=== PATIENT | female | born 1970 | race Caucasian/White ===

== ENCOUNTER → 2018-01-03 | Outpatient (REF) | payer OTHER ==
[2018-01-03 22:38] LABS: CHLAMYDIA DNA AMPLIFICATION NEGATIVE (NEGATIVE); GC DNA AMPLIFICATION NEGATIVE (NEGATIVE)
== END ==
LOC: M SFHCLERA 12:33
DX: R30.0 Dysuria (principal)
CPT/HCPCS: 87086

== ENCOUNTER → 2018-08-22 | Outpatient (CLI) | payer OTHER ==
[~2018-08-22] MED LIST: /ACETCOD2T PO; ABIL2TAB PO; CELE10TA PO; CLON0.5T PO; FLEX10TA2 PO; LORA10TA2 PO; NAPR500T2 PO; [UNRECOGNIZED DRUG - OTHER] PO
--- NOTE | 2018-08-22 10:52 | REP ---
MAXILLOFACIAL CT WITHOUT CONTRAST: HISTORY: Acute sinusitis. Minimal mucosal thickening is present in the maxillary, left ethmoid and right frontal sinuses. 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 The remaining sinuses are clear. The osteomeatal units are patent. The middle and inferior nasal turbinates are partially paradoxical. There is mild deviation of the nasal septum to the left. The cribriform plate, medial simms of the orbits, and optic canals are intact. The carotid canals form a segment of the posterolateral simms of the sphenoid sinus. IMPRESSION: 1. Sinus mucosal thickening as described above. 2. 9 mm left ethmoid sinus osteoma. Electronically Signed by Scooter Guadalupe MD 08/22/2018 10:56 A
== END ==
LOC: M RAD 10:00
PROVIDERS: ATTEND Family Medicine
DX: D16.4 Benign neoplasm of bones of skull and face (principal); J01.00 Acute maxillary sinusitis, unspecified; Z87.81 Personal history of (healed) traumatic fracture

== ENCOUNTER 2018-10-11 13:22 | Outpatient (RCR) | payer OTHER ==
[~2018-10-11 13:22] MED LIST changes: -/ACETCOD2T PO; +ACET1TAB15 PO; +TOLT4LA PO; -[UNRECOGNIZED DRUG - OTHER] PO
== END 2018-11-10 ==
LOC: M PT 13:22
PROVIDERS: ATTEND Family Medicine
DX: N39.46 Mixed incontinence (principal)

== ENCOUNTER → 2019-01-10 | Outpatient (REF) | payer OTHER | LOC: M SFHCCLAY 12:47 | PROVIDERS: ATTEND Family Medicine | DX: R23.9 Unspecified skin changes (principal) ==

== ENCOUNTER → 2019-02-05 | Outpatient (REF) | payer OTHER ==
[~2019-02-05] MED LIST changes: +AZEL1SPR3 NARES; +BENA25CA4 PO; +CITA20TA6 PO; +ECHI500C PO; +FLUT15.820; +IBUPOTC PO; +MYRB50TA PO; +TRAZ-252 PO; +VARE05TA PO
[2019-02-05 17:16] LABS: APPEARANCE, URINE TURBID (CLEAR); BACTERIA, URINE AUTO NEGATIVE (NEGATIVE); BILIRUBIN, URINE AUTO NEGATIVE (NEGATIVE); BLOOD, URINE BLOOD 1+ (NEGATIVE); COLOR, URINE AMBER (YELLOW); GLUCOSE, URINE (UA) AUTO NEGATIVE (NEGATIVE); KETONE, URINE AUTO TRACE mg/dL (NEGATIVE); LEUKOCYTE ESTERASE, URINE AUTO NEGATIVE (NEGATIVE); NITRITE, URINE AUTO NEGATIVE (NEGATIVE); PROTEIN, URINE AUTO NEGATIVE (NEGATIVE); RBC, URINE AUTO 2 /HPF (0-3); SQUAMOUS EPITHELIAL CELL UR AU 3 /HPF (0-6); UROBILINOGEN, URINE AUTO 0.2 mg/dL (0.0-2.0); WBC, URINE AUTO 0 /HPF (0-3)
== END ==
LOC: M LAB REF 16:44
PROVIDERS: ATTEND Obstetrics & Gynecology
DX: R82.90 Unspecified abnormal findings in urine (principal)

== ENCOUNTER 2019-05-24 13:10 | Day surgery (SDC) | payer OTHER ==
[~2019-05-24] VITALS: Ht 154.9 cm; Wt 85.2 kg
[~2019-05-24 13:10] MED LIST changes: +LR 1,000 ML IV ONE; +ceFAZolin SOD 2 GM in IV 1 EA IV ONE
[2019-05-24] MEDS ORDERED: VASOPRESSIN INJ 20 UNITS/ML VIAL As Ordered ONE (15:33)
[2019-05-24] MEDS ORDERED: SCOPOLAMINE 1MG TRANSDERMAL PATCH As Ordered ONE (15:42)
[2019-05-24] MEDS ORDERED: dexameTHASONE 4 MG/ML 1ML VIAL (J1100) As Ordered ONE (15:51)
[2019-05-24] MEDS ORDERED: MIDAZOLAM INJ 2 MG/2 ML VIAL (J2250) As Ordered ONE (15:51)
[2019-05-24] MEDS ORDERED: SUGAMMADEX SODIUM 500 MG/5 ML VIAL (BRIDION) As Ordered ONE (15:51)
[2019-05-24] MEDS ORDERED: KETOROLAC 60 MG/2 ML VIAL (J1885) As Ordered ONE (15:51)
[2019-05-24] MEDS ORDERED: ONDANSETRON 4MG/2ML VIAL (J2405) As Ordered ONE (15:51)
[2019-05-24] MEDS ORDERED: fentaNYL 250 MCG/5 ML INJECTION (J3010) As Ordered ONE (15:51)
[2019-05-24] MEDS ORDERED: METOCLOPRAMIDE INJ 10MG/2ML VIAL (J2765) As Ordered ONE (15:51)
[2019-05-24] MEDS ORDERED: ROCURONIUM BROMIDE 50 MG/5 ML VIAL As Ordered ONE ×2 (15:51→17:03)
[2019-05-24] MEDS ORDERED: LIDOCAINE 2% INJ 100 MG/5 ML SDV (FOR ANES.) As Ordered ONE (15:51)
[2019-05-24] MEDS ORDERED: PROPOFOL 200 MG/20 ML VIAL As Ordered ONE (15:51)
[2019-05-24] MEDS ORDERED: SCOPOLAMINE 1MG TRANSDERMAL PATCH TOP ONE (16:00)
[2019-05-24] MEDS ORDERED: ePHEDrine SULFATE 25 MG/5 ML(5MG/ML) SYRINGE As Ordered ONE ×2 (16:01→16:08)
[2019-05-24] MEDS ORDERED: ACETAMINOPHEN 1000MG 100ML IV BTL (OFIRMEV) (J0131 PER 10MG) As Ordered ONE (16:08)
[2019-05-24] MEDS ORDERED: fentaNYL 100 MCG/2 ML INJECTION (J3010) As Ordered ONE (17:05)
[2019-05-24] MEDS ORDERED: fentaNYL 100 MCG/2 ML INJECTION (J3010) IV PRN (19:00)
[2019-05-24] MEDS ORDERED: LR 1,000 ML IV SCH (19:00)
[2019-05-24] MEDS ORDERED: NORCO, ANEXSIA 5/325MG TABLET (HYDROcodone/ACETAMINOPHEN) PO PRN (19:00)
[2019-05-24 20:30] VITALS: BP 109/57
[2019-05-24 21:00] VITALS: BP 111/67
[2019-05-24] MEDS: LR 1,000 ML IV SCH (21:00)
[2019-05-24 21:30] VITALS: BP 100/54
--- NOTE | 2019-05-24 22:00 | RO ---
DATE OF PROCEDURE: 05/24/2019 PREOPERATIVE DIAGNOSIS: Symptomatic prolapse and stress urinary incontinence. POSTOPERATIVE DIAGNOSIS: Symptomatic prolapse and stress urinary incontinence. PROCEDURE: Sacrospinous suspension with anterior and posterior repair, cystourethroscopy, midurethral sling Altis. SURGEON: Dr. Keyla Lane TRANS ROUTER: None. ANESTHESIA: General endotracheal anesthesia. DESCRIPTION OF PROCEDURE: Annette was brought to the operating room where sufficient general endotracheal anesthesia was induced. She was prepped, draped and positioned in the usual sterile fashion, and the apex of the vagina grasped with Allis clamps. A jesus-shaped area of tissue over the larger cystocele and smaller rectocele was excised at the apex of the vagina after injection with diluted vasopressin. There was, as we dissected off the vaginal epithelium, an apical defect anteriorly just anterior to the cuff, so we oversewed that as well as, of course, doing a [id number] and a pursestring closure for the anterior and posterior corrections. And when we would reduced that, we went ahead and dissected out towards the right sacrospinous ligament, and having dissected and cleared that ligament, we placed Anchorsure anchors; we placed two Anchorsure anchors. Each of those Anchorsure anchors had two #2-0 Maxon sutures threaded through so that we had four sutures with which to work, and we used those to do a four-point suspension of the vaginal apex. We had already closed anteriorly some of the defect in the vaginal epithelium from that jesus-shaped area of excision, so as to reduce that down to the size of the posterior correction. And then after we had those sutures placed, we went ahead and closed the cuff and then brought the sutures down, then scoped the patient with the cystoscope. We saw normal jets of urine from both ureters and, of course, some support as well. There was a little bruising, but no evidence of any significant injury to the bladder. We then went anteriorly and placed the Altis midurethral sling. First we injected again with diluted vasopressin, made an anterior vaginal wall incision, dissected out laterally with the Strully scissors large enough to have a flat space for the Altis to lay over the urethra. Then, placed first right side, then the left side anchor and carefully tensioned down the Altis so that just loosely flat not tensely flat. The skin edge on the left side was a little oozy, but this was noted well before the actual Altis was placed. Having gotten the tension just right, we went ahead and trimmed the string and went ahead and closed the vaginal wall. Then, we did a perineorrhaphy and a proximal rectocele repair as well, removing an inverted triangle of tissue from the perineum and a triangle of the posterior vaginal wall, and doing a [id number] plication of levators and reconnecting the rectovaginal septum to the perineal body. And then, of course, resupporting the perineal body as well and closing the skin using #0 for some of the deeper stitches at the perineum and then #2-0 for the vaginal deeper stitches and the vaginal epithelial closure and the perineal skin closure. And we then placed a pack vaginally, which will be removed before she goes home. There was a normal rectal exam at the end of the case and, of course, we emptied the bladder at the end of the case too. Then, the case was ended. Estimated blood loss for the procedure: About 100 mL. Fluid replacement was crystalloid. Complications: None. Condition and Disposition: Annette tolerated the procedure well and was recovering in the recovery room in good condition.
[2019-05-24 22:30] VITALS: BP 103/51
[2019-05-24 23:30] VITALS: BP 115/65
[2019-05-25 00:30] VITALS: BP 122/65
[2019-05-25 01:30] VITALS: BP 96/53
[2019-05-25] MEDS: IBUPROFEN 600 MG TAB PO PRN ×2 (01:51→08:38)
[2019-05-25] MEDS: LR 1,000 ML IV SCH (03:00)
[2019-05-25 08:30] VITALS: BP 139/67
== END 2019-05-25 09:40 | disposition home or self-care (01) ==
LOC: M SDC 13:10 → M PED 19:36 → M SDC 05-25 09:40
PROVIDERS: ATTEND Obstetrics & Gynecology
DX: N81.10 Cystocele, unspecified (principal); N39.3 Stress incontinence (female) (male); R01.1 Cardiac murmur, unspecified; M19.90 Unspecified osteoarthritis, unspecified site; M54.2 Cervicalgia; M25.559 Pain in unspecified hip; F32.9 Major depressive disorder, single episode, unspecified; F17.210 Nicotine dependence, cigarettes, uncomplicated; Z91.018 Allergy to other foods; Z91.040 Latex allergy status; Z79.899 Other long term (current) drug therapy
CPT/HCPCS: 57260; 57283; 57288; C1713; J0131; J0690; J1100; J1885; J2250; J2405; J2765; J3010

== ENCOUNTER → 2020-11-04 | Outpatient (CLI) | payer OTHER ==
[~2020-11-04] MED LIST changes: -LR 1,000 ML IV ONE; -ceFAZolin SOD 2 GM in IV 1 EA IV ONE
--- NOTE | 2020-11-04 14:08 | REP ---
INDICATION: PAIN Status post arthroplasty. COMPARISON: None. TECHNIQUE: AP view of the pelvis with neutral and frog-lateral views of the left hip FINDINGS: Osseous structures and joint spaces are essentially symmetric and age-appropriate. No evidence for acute fracture or dislocation. Mild degenerative changes to the left hip includes increased sclerosis to the acetabular roof with minimal joint space narrowing. IMPRESSION: Generalized age-related changes <Electronically signed by Ryan Coelho > 11/04/20 [id number]
== END ==
LOC: M SOG 12:56
PROVIDERS: ATTEND Orthopaedic Surgery Adult Reconstructive Orthopaedic Surgery
DX: M25.552 Pain in left hip (principal); M16.12 Unilateral primary osteoarthritis, left hip